=== PATIENT | female | born 1995 | race Caucasian/White ===

== ENCOUNTER 2022-12-18 09:50 | Emergency (ER) | payer OTHER ==
[~2022-12-18] VITALS: Ht 162.6 cm; Wt 56.7 kg
[2022-12-18 09:56] VITALS: BP 124/98
[2022-12-18 10:10] LABS: Source, Urine Clean Catch
[2022-12-18 10:19] LABS: Appearance, Urine Hazy (Clear); Blood, Urine 4+ (Neg); Glucose Qualitative, Urine Neg (Neg); Ketones, Urine Neg (Neg); Leukocyte Esterase, Urine 2+ (Neg); Nitrite, Urine Pos (Neg); Protein, Urine 2+ (Neg); Specific Gravity, Urine 1.025 (1.003-1.022); Urobilinogen, Urine 3+ (Normal)
[2022-12-18 10:37] LABS: Bilirubin, Urine 3+ (Neg); Color, Urine Orange (P-Yellow)
[2022-12-18 10:40] LABS: Bacteria Many /hpf; White Blood Cells, Urine 50-100 /hpf (0-5)
[2022-12-18 10:41] LABS: Squamous Epithelial Cells Few /hpf (Few)
[2022-12-18 10:42] LABS: Transitional Epithelial Cells Rare /hpf (0-Rare)
[2022-12-18] MEDS ORDERED: CEPH500 PO (11:02)
[2022-12-18] MEDS ORDERED: PHENA200 PO (11:11)
== END 2022-12-18 11:14 | disposition home or self-care (01) ==
LOC: ER 09:50
PROVIDERS: Student in an Organized Health Care Education/Training Program
DX: N39.0 Urinary tract infection, site not specified (principal); Z88.6 Allergy status to analgesic agent; Z91.040 Latex allergy status; Z88.5 Allergy status to narcotic agent
CPT/HCPCS: 81001; 87077; 87086; 87186; 99283; A9270